=== PATIENT | female | born 1945 | race Two or more races ===

== ENCOUNTER → 2024-07-27 | Outpatient (CLI) | payer MEDICARE, SELFPAY ==
--- NOTE | 2024-07-27 09:14 | XR_ITS ---
Examination: Thoracolumbar spine 3 views TECHNIQUE: AP thoracolumbar spine x2, lateral thoracolumbar spine x1 total 3 views Exam date and time: July 27, 2024 0937 hours INDICATIONS: Back pain months FINDINGS: Lumbar levoscoliosis 6 degrees Prominent osteopenia No acute lumbar or thoracic fracture Mild to moderate diffuse thoracic degenerative disc disease Mild diffuse lumbar degenerative disc disease IMPRESSION: Mild to moderate diffuse thoracic degenerative disc disease Mild diffuse lumbar degenerative disc disease
== END | disposition home or self-care (01) ==
PROVIDERS: PCP Family Medicine; Referring Provider Nurse Practitioner Family; Visit Provider Nurse Practitioner Family
DX: M51.34 Other intervertebral disc degeneration, thoracic region (principal); M51.369 Other intervertebral disc degeneration, lumbar region without mention of lumbar back pain or lower extremity pain
CPT/HCPCS: 72080

== ENCOUNTER 2025-03-13 15:55 | Emergency (ER) | payer MEDICARE, SELFPAY ==
[2025-03-13 15:56] VITALS: BMI 21.2
[2025-03-13 16:39] VITALS: BP 145/87; PULSE 67; RESP 19; TEMP 37.1; O2SAT 98
--- NOTE | 2025-03-13 16:51 | XR_ITS ---
Examination: Wrist, left 3 views Technique: Wrist AP, oblique, lateral 3 views Date and time of exam: March 13, 2025 1724 hours INDICATIONS: Patient fell 2 days ago with injury to the wrist, wrist pain. FINDINGS: Prominent osteopenia On the lateral view nondisplaced fracture distal radial metaphysis with break in the cortex of the dorsal distal radius IMPRESSION: Acute nondisplaced fracture distal radial metaphysis
--- NOTE | 2025-03-13 16:51 | PD.EDRME ---
Rapid Medical Screening Exam E Arrival date/time: 03/13/25 15:55 79-year-old female with a history of type 2 diabetes presents to the emergency room with a chief complaint of tenderness and pain to her left wrist after a ground-level fall that occurred yesterday morning. I have greeted and performed a focused initial assessment of this patient. A comprehensive ED assessment and evaluation of the patient, analysis of all test results, and completion of the medical decision making process will be conducted by additional ED providers. Chief Complaint: Hand/Wrist Problems Vital signs: Vital Signs Temperature 98.8 F 03/13/25 16:39 Pulse Rate 67 03/13/25 16:39 Respiratory Rate 19 03/13/25 16:39 Blood Pressure 145/87 H 03/13/25 16:39 Pulse Oximetry (%) 98 03/13/25 16:39 Oxygen Delivery Method Room Air 03/13/25 16:39 Vital signs reviewed by provider: Yes
[2025-03-13 20:11] VITALS: BP 145/77; PULSE 71; RESP 19; TEMP 36.6; O2SAT 100
--- NOTE | 2025-03-13 20:30 | PD.EDHAND ---
Upper Extremity Injury RME/HPI General Chief Complaint: Hand/Wrist Problems Stated Complaint: L) WRIST INJURY FROM FALL ON THURSDAY Time Seen by Provider: 03/13/25 18:11 Arrival date/time: 03/13/25 15:55 79-year-old female presents to the ED with complaint of left wrist and hand pain secondary to a fall on an outstretched hand which occurred on Thursday. Son was with her at the time and witnessed the incident where she tripped over the dog. She denies striking her head or having any loss of consciousness. She and her daughter deny any other injuries. RME / HPI RME / HPI narrative: 03/13/25 15:55 79-year-old female with a history of type 2 diabetes presents to the emergency room with a chief complaint of tenderness and pain to her left wrist after a ground-level fall that occurred yesterday morning. I have greeted and performed a focused initial assessment of this patient. A comprehensive ED assessment and evaluation of the patient, analysis of all test results, and completion of the medical decision making process will be conducted by additional ED providers. Related Data Home Medications ?Medication ?Instructions ?Recorded ?Confirmed levothyroxine 50 mcg tablet 50 mcg PO ##0 05/20/08 (Synthroid) lisinopril 5 mg tablet (Zestril) 5 mg PO ##0 05/20/08 pantoprazole 40 mg tablet,delayed 40 mg PO DAILY 28 days ##0 05/20/08 release (Protonix) letrozole 2.5 mg tablet 2.5 mg PO QDAY #0 tabs 03/27/14 metformin 500 mg tablet 250 mg PO QDAY #0 tabs 03/27/14 (Glucophage) Previous Rx's ?Medication ?Instructions ?Recorded hydroxyzine HCl 25 mg tablet 25 mg PO TID PRN anxiety #10 tabs 03/23/24 prednisone 10 mg tablet 10 mg PO BID #6 tabs 04/11/24 Allergies Allergy/AdvReac Type Severity Reaction Status Date / Time morphine Allergy Intermediate Hallucinate Verified 03/13/25 15:58 s Review of Systems Review of Systems Systems Reviewed: All systems reviewed, normal except as documented Past Medical History Past Medical History CARDIAC: Positive Cardiac Disorders and Hypertension; Negative Congestive Heart Failure RESPIRATORY: Negative Chronic Obstructive Pulmonary Disease (COPD) GASTROINTESTINAL: Positive Gastrointestinal Disorders and Gastroesophageal Reflux Disease GENITOURINARY: Negative Renal Disease REPRODUCTIVE: Positive Breast Cancer ENDOCRINE: Negative Diabetes Mellitus Type 1 or Diabetes Mellitus Type 2 OTHER HISTORY: Positive Cancer and Breast Cancer Family History FAMILY HISTORY: Negative Family Cardiac Disorders Surgical History SURGICAL: Positive Abdominal Surgery and Mastectomy Social History SMOKING STATUS: Never smoker ED Exam Narrative Physical exam: Alert, afebrile and non-toxic appearing, pleasant 79-year-old female, with her daughter present, no acute distress. Lung are clear, RRR, left distal radius/ulna with swelling, tenderness and ecchymosis. Decreased range of motion secondary to pain. Moves all extremities well. Course Orders Category Date Time Status XR wrist comp LT min 3V Stat Exams 03/13/25 16:51 Completed Vital Signs Vital signs: Vital Signs Temperature 98.8 F 03/13/25 16:39 Pulse Rate 67 03/13/25 16:39 Respiratory Rate 19 03/13/25 16:39 Blood Pressure 145/87 H 03/13/25 16:39 Pulse Oximetry (%) 98 03/13/25 16:39 Oxygen Delivery Method Room Air 03/13/25 16:39 Discharge Plan Prescriptions/Referrals Prescriptions/Med Rec: No Action levothyroxine [Synthroid] 50 MCG tablet 50 mcg PO Qty: 0 Patient Comments: TAKE 1 TAB BY MOUTH DAILY pantoprazole [Protonix] 40 MG tablet,delayed release (DR/EC) 40 mg PO DAILY 28 Days Qty: 0 Patient Comments: TAKE 1 BY MOUTH DAILY lisinopril [Zestril] 5 MG tablet 5 mg PO Qty: 0 Patient Comments: TAKE 1 TAB BY MOUTH DAILY metformin [Glucophage] 500 MG tablet 250 mg PO QDAY Qty: 0 letrozole 2.5 MG tablet 2.5 mg PO QDAY Qty: 0 hydroxyzine HCl 25 mg tablet 25 mg PO TID PRN (Reason: anxiety) Qty: 10 0RF prednisone 10 mg tablet 10 mg PO BID Qty: 6 0RF Taper: Prednisone Taper 20 mg DAILY for 2 Days and 0 Hour 10 mg DAILY for 2 Days and 0 Hour 5 mg DAILY for 7 Days and 0 Hour Referrals: Yuly Hennessy NP [Primary Care Provider] - In 1 week Patient/Caregiver Discharge Instructions Print Language: Algerian
[2025-03-13] MEDS: NAPROXEN 250 MG TABLET PO (21:21)
== END 2025-03-13 22:08 | disposition left against medical advice (07) ==
PROVIDERS: Emergency Provider Emergency Medicine; PCP Nurse Practitioner Family
DX: S52.592A Other fractures of lower end of left radius, initial encounter for closed fracture (principal); E11.9 Type 2 diabetes mellitus without complications; Z79.52 Long term (current) use of systemic steroids; Z79.899 Other long term (current) drug therapy; M25.532 Pain in left wrist; M79.642 Pain in left hand; W18.39XA Other fall on same level, initial encounter
CPT/HCPCS: 29125; 73110; 99283; A9270

== ENCOUNTER → 2025-04-11 | Outpatient (CLI) | payer MEDICARE, SELFPAY ==
--- NOTE | 2025-04-11 15:35 | XR_ITS ---
Examination: Wrist, left 3 views Technique: Wrist AP, oblique, lateral 3 views Date and time of exam: April 11, 2025 1545 hours, comparison March 13, 2025 FINDINGS: Healing fracture distal radial metaphysis with stable and satisfactory alignment Severe osteopenia IMPRESSION: Healing fracture distal radial metaphysis with stable and satisfactory alignment
--- NOTE | 2025-04-11 15:35 | XR_ITS ---
Examination: Hand, left 3 views Technique: Hand AP, oblique, lateral 3 views Date and time of exam: April 11, 2025 1545 hours INDICATIONS: Acute fracture distal radial metaphysis on wrist films March 13, 2025. FINDINGS: Severe osteopenia Partial healing fracture distal radial metaphysis with stable and satisfactory alignment IMPRESSION: Partial healing fracture distal radial metaphysis with stable and satisfactory alignment.
== END | disposition home or self-care (01) ==
PROVIDERS: PCP Nurse Practitioner Family; Referring Provider Physician Assistant; Visit Provider Physician Assistant
DX: S52.92XA Unspecified fracture of left forearm, initial encounter for closed fracture (principal); X58.XXXA Exposure to other specified factors, initial encounter
CPT/HCPCS: 73110; 73130